=== PATIENT | male | born 1980 | race American Indian/Alaskan Native ===

== ENCOUNTER 2017-08-10 20:07 | Emergency (ER) | payer SELFPAY ==
[2017-08-10 20:12] VITALS: BP 130/86; PULSE 81; RESP 20; TEMP 98.8; O2SAT 100
--- NOTE | 2017-08-10 20:59 | C.PDOC ---
History Of Present Illness 36yo male, presents to ED for evaluation of bilateral thumb pain x 3 weeks. Patient states 3 weeks ago, a box of tiles fell on his hands and he had resultant pain and swelling. Patient states the swelling is relieved with use of ice pack. Patient reports he still has difficulty using his thumbs, prompting the ER visit. He denies any new trauma, injury, weakness, numbness and offers no other medical complaints. Time Seen by Provider: 08/10/17 20:15 Chief Complaint (Nursing): Upper Extremity Problem/Injury History Per: Patient History/Exam Limitations: no limitations Onset/Duration Of Symptoms: Days Current Symptoms Are (Timing): Still Present Quality: "Pain" Exacerbating Factor(s): Strenuous Use Of Affected Area Additional History Per: Patient Past Medical History Reviewed: Historical Data, Nursing Documentation, Vital Signs Vital Signs: Last Vital Signs Temp 98.8 F 08/10/17 20:09 Pulse 81 08/10/17 20:09 Resp 20 08/10/17 20:09 BP 130/86 08/10/17 20:09 Pulse Ox 100 08/10/17 22:07 - Medical History PMH: No Chronic Diseases Surgical History: No Surg Hx Family History: States: No Known Family Hx - Social History Hx Alcohol Use: No Hx Substance Use: No - Immunization History Hx Tetanus Toxoid Vaccination: No Hx Influenza Vaccination: No Hx Pneumococcal Vaccination: No Review Of Systems Except As Marked, All Systems Reviewed And Found Negative. Musculoskeletal: Positive for: Hand Pain (bilateral thumb pain) Neurological: Negative for: Weakness, Numbness Physical Exam - Physical Exam Appears: Non-toxic, No Acute Distress Skin: Normal Color Eye(s): bilateral: Normal Inspection Neck: Supple Chest: Symmetrical Cardiovascular: Rhythm Regular Extremity: Normal ROM, Tenderness (minimal to right thumb at MCP/ distal aspect and left MCP), No Deformity, No Swelling, Other (old, healing subungal hematoma on right thumb.) Extremity: Bilateral: Normal Color And Temperature Pulses: Left Radial: Normal, Right Radial: Normal Neurological/Psych: Oriented x3, Normal Motor, Normal Sensation ED Course And Treatment O2 Sat by Pulse Oximetry: 100 (RA) Pulse Ox Interpretation: Normal Progress Note: XR Bilateral hands ordered. Disposition Counseled Patient/Family Regarding: Diagnosis - Disposition Referrals: Paola Fisher MD [Staff Provider] - Disposition: HOME/ ROUTINE Disposition Time: 22:06 Condition: STABLE Additional Instructions: Please follow up with Hand specialist Tylenol or advil for pain Return to ER if worse Instructions: Finger Fracture (DC) Forms: [facility] ([place]) - Clinical Impression Clinical Impression: Thumb fracture
--- NOTE | 2017-08-11 08:59 | RAD ---
PROCEDURE: Bilateral hand radiographs. HISTORY: Thumb pain COMPARISON: None. FINDINGS: BONES: Right Hand: Intraarticular fracture of the 1st distal phalanx volar plate. Left Hand: No acute fracture. JOINTS: Right Hand: Unremarkable. Left Hand: Unremarkable. SOFT TISSUES: Right Hand: 1st digit soft tissue small. Left Hand: Unremarkable. OTHER FINDINGS: None. IMPRESSION: Intra-articular fracture of the 1st distal phalanx volar plate.
== END 2017-08-10 22:22 | disposition home or self-care (01) ==
LOC: C.ER 20:07
DX: S62.521A Displaced fracture of distal phalanx of right thumb, initial encounter for closed fracture (principal); W22.8XXA Striking against or struck by other objects, initial encounter